=== PATIENT | female | born 1985 | race Caucasian/White ===

== ENCOUNTER 2021-06-13 15:33 | Outpatient (CLI) | payer BC, SELFPAY ==
--- NOTE | 2021-06-13 15:50 | XR_ITS ---
WS: [id number] Exam: XR thoracic spine 3V* [id number] Date/Time of Exam: 06/13/2021 4:01 PM Reason For Exam: NECK AND BACK PAIN Findings: In the AP projection, the thoracic spine is straight. In the lateral projection, the thoracic curve is well maintained. The intervertebral disc spaces are intact. No fractures or anomalies of the tho racic spine are noted. XR/XR thoracic spine 3V* [id number] IMPRESSION: Negative thoracic spine.
--- NOTE | 2021-06-13 15:50 | XR_ITS ---
WS: [id number] Exam: XR cervical spine 3V* [id number] Date/Time of Exam: 06/13/2021 4:01 PM Reason For Exam: NECK AND UPPER BACK PAIN No fracture or dislocation noted. The odontoid is intact. Paraspinal soft tissues appear normal. Post erior elements are unremarkable. XR/XR cervical spine 3V* [id number] IMPRESSION: 1. Negative cervical spine study.
== END 2021-06-13 15:34 | disposition home or self-care (01) ==
LOC: RAD 15:43
PROVIDERS: PCP Family Medicine; Visit Provider Family Medicine
DX: M54.2 Cervicalgia (principal); M54.6 Pain in thoracic spine
CPT/HCPCS: 72040; 72072

== ENCOUNTER 2025-05-16 01:08 | Inpatient (IN) | payer BC, SELFPAY ==
[2025-05-16] VITALS (30 sets, daily range): BP systolic 104–138; BP diastolic 56–81; PULSE 63–83; RESP 16–18; TEMP 36.6–36.8; O2SAT 95–98; BMI 31.8
--- NOTE | 2025-05-16 01:31 | P.HPUD_ITS ---
Labor & Delivery H&P Update Date of Procedure: May 16, 2025 Date H&P Performed: 05/09/25 Changes to previous documentation: SROM Admission Diagnosis: 39 year old at 38 weeks with SROM Planned procedure: Other information: The patient is an otherwise healthy 39-year-old female who had relatively unr emarkable . She arrived to the hospital complaining of spontaneous rupture membranes. Rupture membranes was confirmed. Her blood type is O+. Her antigen screen had a false positive but was found to be negative. She had an early GC which was done with positive. She was tested negative after treatment she passed her glucose screen. She was GBS negative. She is rubella immune. The remainder of her infectious disease profile is within normal limits. Related Problem List Diagnoses 1. 39 weeks gestation of : A&P Assessment and plan 1. 39 weeks gestation of : I anticipate Status: Acute PDMP PDMP Reviewed: Not Reviewed
[2025-05-16 01:51] LABS: Hematocrit 39.7 % (36-47); Hemoglobin 13.10 g/dL (11.27-16.99); Mean Corpuscular HGB Conc 33.0 g/dL (30-55); Mean Corpuscular Hemoglobin 27.6 pg (27-33); Mean Corpuscular Volume 83.6 fl (85-98); Nucleated Red Blood Cells % 0.1 %; Platelet Count 214 10^3/cmm (157-399); Red Blood Count 4.75 10^6/uL (3.85-5.65); White Blood Count 16.75 10^3/uL (3.29-11.43)
[2025-05-16] MEDS: oxytocin 30 UNIT/500 ML BAG 600 UNIT IV (01:57)
--- NOTE | 2025-05-16 02:10 | PM.DELIVERY ---
Delivery Note: Date of delivery: May 16, 2025 Pre-delivery diagnoses: 39 year old at 39 week ega Post-delivery diagnoses: Post Procedure: Delivering Physician: Estevan Zhou Estimated blood loss (mL): 50 Pre-Delivery Course: SROM arrived 4 cm dilated. She quickly progressed to complete. Delivery: DELIVERY: The patient progressed to complete without difficulty. She delivered a male with a weight of 7 pounds 2 ounces with Apgars of 8, 9. The baby was delivered from the ALIX position. The baby's mouth and nose were suctioned at the site of the perineum. The baby was then completely delivered and placed on the mother's abdomen. The cord was then clamped and cut. There was no nuchal cord. There was no meconium. The placenta and 3 vessel cord were delivered intact shortly thereafter. The perineum and vaginal vault were carefully examined. A first-degree posterior midline tear was noted that did not require repair. Both the mother and the baby were in stable condition. Post-Delivery Status: Good History History History 5 Term 5 Miscarriages/Ectopic Living Children 5 A&P Assessment and plan 1. Vaginal delivery: I anticipate routine care PDMP PDMP Reviewed: Not Reviewed Coding Level of Care Code Acute Code for Chg Fwd Diagnoses Vaginal delivery O80
[2025-05-16] MEDS: benzocaine-menthol 78 gm Canister 1 SPRAY TOPICAL (04:55)
[2025-05-16] MEDS: PRENATAL VIT NO.130/IRON/FOLIC 1 EACH TABLET PO (09:06)
[2025-05-16 14:08] LABS: Hematocrit 36.5 % (36-47); Hemoglobin 12.20 g/dL (11.27-16.99); Mean Corpuscular HGB Conc 33.4 g/dL (30-55); Mean Corpuscular Hemoglobin 28.2 pg (27-33); Mean Corpuscular Volume 84.3 fl (85-98); Platelet Count 183 10^3/cmm (157-399); Red Blood Count 4.33 10^6/uL (3.85-5.65); White Blood Count 18.81 10^3/uL (3.29-11.43)
[2025-05-17 04:00] VITALS: BP 115/79; PULSE 69; RESP 16; TEMP 36.5
--- NOTE | 2025-05-17 07:55 | P.DS_ITS ---
Discharge Providers LAPIDARY APPRENTICE Date of Admission: 05/16/25 01:08 Date of Discharge: 05/17/25 Attending Provider at Admission: Estevan Zhou MD Attending Provider at Discharge: Estevan Zhou MD Primary Care Provider: Phil Hargrove MD Diagnoses at Discharge Discharge Diagnosis 1. Vaginal delivery: Reason for Visit Reason for Visit: Contractions Hospital Course Hospital Course The patient arrived to the hospital with spontaneous rupture membranes. She then quickly progressed to complete. She had an unremarkable delivery of a healthy appearing male infant. Her course was unremarkable. Her course was unremarkable. She breast-fed well. Her bleeding was within normal limits. Her pain was well-controlled. Information Peripartum Data: Delivery Method: Vaginal Physical Exam Narrative: The patient is alert. She appears comfortable. Her heart has a regular rate and rhythm with no murmurs appreciated. Lungs are clear to auscultation bilaterally. Her fundus is firm and below the umbilicus. History History History 5 Term 5 Miscarriages/Ectopic Living Children 5 Discharge Data Studies Completed and Pending Laboratory Results WBC 18.81 10^3/uL (3.29-11.43) H 05/16/25 13:53 RBC 4.33 10^6/uL (3.85-5.65) 05/16/25 13:53 Hgb 12.20 g/dL (11.27-16.99) 05/16/25 13:53 Hct 36.5 % (36-47) 05/16/25 13:53 MCV 84.3 fl (85-98) L 05/16/25 13:53 MCH 28.2 pg (27-33) 05/16/25 13:53 MCHC 33.4 g/dL (30-55) 05/16/25 13:53 RDW 14.6 % (12.1-15.1) 05/16/25 13:53 Plt Count 183 10^3/cmm (157-399) 05/16/25 13:53 MPV 11.9 fL (7.4-10.4) H 05/16/25 13:53 Neut % (Auto) 77.1 % 05/16/25 01:20 Lymph % (Auto) 12.2 % 05/16/25 01:20 Divide % (Auto) 6.9 % 05/16/25 01:20 Eos % (Auto) 0.7 % 05/16/25 01:20 Baso % (Auto) 0.2 % 05/16/25 01:20 Neut # (Auto) 12.92 10^3/uL (1.8-7.7) H 05/16/25 01:20 Lymph # (Auto) 2.1 10^3/uL (0.8-4.8) 05/16/25 01:20 Divide # (Auto) 1.2 10^3/uL (0.2-0.9) H 05/16/25 01:20 Eos # (Auto) 0.1 10^3/uL (0.0-0.8) 05/16/25 01:20 Baso # (Auto) 0.0 10^3/uL (0.0-0.1) 05/16/25 01:20 Nucleated RBC % (auto) 0.1 % 05/16/25 01:20 Nucleated RBCs # 0.0 /100WBC 05/16/25 01:20 Blood Type O Positive 05/16/25 01:20 Rho(D) Type Rh positive 05/16/25 01:20 Antibody Screen Negative 05/16/25 01:20 Vitals Last Vital Signs Temp 97.7 F 05/17/25 04:00 Pulse 69 05/17/25 04:00 Resp 16 05/17/25 04:00 BP 115/79 05/17/25 04:00 Pulse Ox 97 05/16/25 22:00 O2 Del Method Room Air 05/16/25 22:00 Results Labs OB ([facility]): Blood Type O Positive 05/16/25 Antibody Screen Negative 05/16/25 Hct, (36-47) 36.5 % 05/16/25 Hgb, (11.27-16.99) 12.20 g/dL 05/16/25 Rho(D) Type Rh positive 05/16/25 Plt Count, (157-399) 183 10^3/cmm 05/16/25 Discharge Plan Discharge Patient Disposition: Home Condition: Stable Prescriptions: New ibuprofen 800 mg Tablet 800 mg PO TID Qty: 45 0RF docusate sodium 100 mg Capsule 100 mg PO BID Qty: 28 0RF Continued 28-800 mg-mcg Tablet 1 tab PO DAILY Discharge Order = DC NOW: Discharge Order (Routine); Ordered 05/17/25 Ordered By: Estevan Zhou Referrals: Estevan Zhou MD [Physician, Family Practice] - 06/29/25 9:30 am Discharge Diet: Usual diet Discharge Activity: Limit activity as instructed Patient Instructions: Depression (DC), Opioid Safety (DC), Preeclampsia and Eclampsia After Delivery (GEN), Hemorrhage (DC), OB Discharge Report, OB Food/Drug Interaction Guide, OB Care at Home, Opioid Safety, OB Vaginal Deliveries, Patient Portal & Shravan Instructions, Abnormal Bleeding Discharge Attestations LAPIDARY APPRENTICE Time Spent in Discharge Care*: less than 30 min Coding Level of Care Code Acute Code for Chg Fwd Diagnoses Vaginal delivery O80
[2025-05-17] MEDS: PRENATAL VIT NO.130/IRON/FOLIC 1 EACH TABLET PO (08:43)
[2025-05-17 10:15] VITALS: BP 103/68; PULSE 83; RESP 16; TEMP 36.6; O2SAT 97
[2025-05-17 11:55] VITALS: BP 103/68; PULSE 83; RESP 16; TEMP 36.6; O2SAT 97
== END 2025-05-17 12:25 | disposition home or self-care (01) | DRG 807 ==
LOC: OPOB 07:06 → OBGYN 07:07
PROVIDERS: Admitting Provider Family Medicine; PCP Family Medicine; Visit Provider Family Medicine
DX: O80 Encounter for full-term uncomplicated delivery (principal); Z37.0 Single live birth; Z3A.38 38 weeks gestation of pregnancy
CPT/HCPCS: 36415; 59025; 59409; 83986; 85025; 85027; 86850; 86900; 99211; J2590; J7121; J9999